=== PATIENT | female | born 1955 | race Caucasian/White ===

== ENCOUNTER 2023-03-12 11:04 | Day surgery (SDC) | payer OTHER, SELFPAY ==
--- NOTE | 2023-03-11 08:53 | HO.ANESPROP2 ---
Documented by User: Lacy Mcgowan NP 03/11/23 08:54 HPI - Anesthesia Eval Consult details Narrative: 67yo F for Upper Endoscopy and Colonoscopy [facility] Past Medical History Medical History Colon polyps GERD (gastroesophageal reflux disease) Henoch-Schonlein purpura HLD (hyperlipidemia) Surgical History Surgical History H/O colonoscopy (~2016) H/O esophagogastroduodenoscopy (~2016) H/O wisdom tooth extraction Social History Social History Patient Tobacco Use Status: Never used Tobacco Use of substances other than those prescribed or required for medical reasons: No Are you DNR?: No Advance Directives: No Advance Directives Information Provided: Yes Recently lost weight without trying: No Nutrition Risks: No Nutritional Risk Meds Allergies Allergy/AdvReac Type Severity Reaction Status Date / Time corn Allergy Unknown Unknown Verified 03/10/23 13:53 Milk Containing Products Allergy Unknown Unknown Verified 03/10/23 13:53 (Dairy) Home Medications Medication Instructions Recorded Confirmed Last Taken Type loratadine 10 mg tablet mg 03/10/23 Unknown History omeprazole 40 mg capsule,delayed 40 mg PO QAM 03/10/23 03/10/23 Unknown History release simvastatin 20 mg tablet 20 mg PO BEDTIME 03/10/23 03/10/23 Unknown History Exam Exam Date and Time: March 11, 2023 0853 Assessment and Plan Assessment Anesthesia Assessment: Chart Reviewed Documented by User: Fay Devlin MD 03/12/23 12:45 [facility] Past Medical History Medical History Colon polyps GERD (gastroesophageal reflux disease) Henoch-Schonlein purpura HLD (hyperlipidemia) Surgical History Surgical History H/O colonoscopy (~2016) H/O esophagogastroduodenoscopy (~2016) H/O wisdom tooth extraction Social History Social History Patient Tobacco Use Status: Never used Tobacco Use of substances other than those prescribed or required for medical reasons: No Are you DNR?: No Advance Directives: No Advance Directives Information Provided: Yes Recently lost weight without trying: No Nutrition Risks: No Nutritional Risk Meds Allergies Allergy/AdvReac Type Severity Reaction Status Date / Time corn Allergy Unknown Unknown Verified 03/10/23 13:53 Milk Containing Products Allergy Unknown Unknown Verified 03/10/23 13:53 (Dairy) Home Medications Medication Instructions Recorded Confirmed Last Taken Type loratadine 10 mg tablet mg 03/10/23 Unknown History omeprazole 40 mg capsule,delayed 40 mg PO QAM 03/10/23 03/10/23 Unknown History release simvastatin 20 mg tablet 20 mg PO BEDTIME 03/10/23 03/10/23 Unknown History Exam Airway Mallampati Class: II TM Dist: >3cm Neck ROM: Full Loose/Missing/Broken Teeth: No Heart: RRR Lungs: CTA Assessment and Plan Assessment Anesthesia Assessment: Anesthesia Plan Discussed Final Anesthetic Review NPO: Yes ASA Class: II Final Preanesthetic Review: Meds/Allgs Chart Reviewed, Consent Obtained/Reviewed and Anes Risks/Benef Reviewed Patient Risk: Low Procedure Risk: Intermediate Anesthetic Plan Anesthetic Plan: MAC: Disposition: Standard PACU
[2023-03-12 11:37] VITALS: BMI 29.2
[2023-03-12 11:43] VITALS: BP 156/66; RESP 16; TEMP 36.6; O2SAT 97
[2023-03-12] MEDS: Lactated Ringers 1,000 ML 100 ML IVCONT (12:00)
--- NOTE | 2023-03-12 12:45 | MHC.SHP ---
Pre-Procedural Eval Section A Date of Service: 03/12/23 The patient is an INPATIENT: No Changes since office visit: No Cold of Flu in the past 2 weeks, No New Medical Problems, No Changes in Medication and No Patient answered all questions The History & Physical has been completed within 30 days and I have reviewed it.: Yes Section B Chief Complaint: screening and GERD Allergies: Allergies Allergy/AdvReac Type Severity Reaction Status Date / Time corn Allergy Unknown Unknown Verified 03/10/23 13:53 Milk Containing Products Allergy Unknown Unknown Verified 03/10/23 13:53 (Dairy) Plan I have reviewed the history and physical and performed a pertinent physical examination on my patient. No changes have occurred unless specified. Time Spent With Patient Time: Total time managing care of this patient today ____ minutes.
--- NOTE | 2023-03-12 13:16 | HO.ANESPROP2 ---
[facility] Past Medical History Medical History Colon polyps GERD (gastroesophageal reflux disease) Henoch-Schonlein purpura HLD (hyperlipidemia) Surgical History Surgical History H/O colonoscopy (~2016) H/O esophagogastroduodenoscopy (~2016) H/O wisdom tooth extraction Social History Social History Patient Tobacco Use Status: Never used Tobacco Use of substances other than those prescribed or required for medical reasons: No Are you DNR?: No Advance Directives: No Advance Directives Information Provided: Yes Recently lost weight without trying: No Nutrition Risks: No Nutritional Risk Meds Allergies Allergy/AdvReac Type Severity Reaction Status Date / Time corn Allergy Unknown Unknown Verified 03/10/23 13:53 Milk Containing Products Allergy Unknown Unknown Verified 03/10/23 13:53 (Dairy) Active Medications: Current Medications Lactated Ringer's (Lr) 1,000 mls @ 100 mls/hr IVCONT .Q10H KIP Last Admin: 03/12/23 12:00 Dose: 100 mls/hr Home Medications Medication Instructions Recorded Confirmed Last Taken Type loratadine 10 mg tablet mg 03/10/23 Unknown History omeprazole 40 mg capsule,delayed 40 mg PO QAM 03/10/23 03/10/23 Unknown History release simvastatin 20 mg tablet 20 mg PO BEDTIME 03/10/23 03/10/23 Unknown History Exam Exam Date and Time: March 12, 2023 1316 Height,Weight and Vital Signs: Height 5 ft 8 in Weight 87.09 kg Last Vital Signs Temp 97.9 F 03/12/23 11:43 Resp 16 03/12/23 11:43 BP 156/66 H 03/12/23 11:43 Pulse Ox 97 03/12/23 11:43 O2 Del Method Room Air 03/12/23 11:43 Airway Mallampati Class: II
[2023-03-12 13:35] VITALS: BP 103/82; PULSE 67; RESP 16; TEMP 36.2; O2SAT 99
--- NOTE | 2023-03-12 13:35 | P.BOP_ITS ---
Brief Operative Note Date of Service: 03/12/23 Pre-op diagnosis: gerd screening Post-op diagnosis: same Surgeon: Javon Black Anesthesia: MAC Was an Graphic [employer] Sales Representative used for this Procedure?: No Estimated blood loss (mL): 5 Pathology: other Condition: stable Disposition: PACU
[2023-03-12 13:50] VITALS: BP 139/55; PULSE 81; RESP 16; TEMP 36.2; O2SAT 99
--- NOTE | 2023-03-12 13:55 | OP_ITS ---
DATE OF SERVICE: 03/12/2023 SURGEON: Javon Black MD INDICATIONS: 1. Gastroesophageal reflux disease. 2. Colon cancer screening. PREOPERATIVE DIAGNOSIS: POSTOPERATIVE DIAGNOSIS: PROCEDURE PERFORMED: Upper endoscopy with biopsy, colonoscopy to the terminal ileum with snare polypectomy and biopsy. ESTIMATED BLOOD LOSS: COMPLICATIONS: ANESTHESIA: Monitored anesthesia care. ASSISTANTS: SPECIMENS: DESCRIPTION OF PROCEDURE: A history and physical was performed. The risks and benefits of the procedure were explained to the patient. Informed consent was obtained. The patient was placed in the left lateral decubitus position. The Olympus video gastroscope was introduced into the esophagus, stomach, and duodenum. Examination was performed, and the scope was removed. She was repositioned for colonoscopy. A digital rectal exam was performed and was found to be normal. The Olympus pediatric video colonoscope was introduced into the rectum and advanced to the cecum without difficulty. The cecum was identified by transillumination, palpation, and identification of ileocecal valve. Examination was performed. The scope was removed. She tolerated both procedures well and was returned to the recovery area in stable condition. FINDINGS: Upper endoscopy: 1. Esophagus: The esophagus was normal. There was no esophagitis. There was a slight Schatzki that was nonobstructive at the EG junction. Biopsies were obtained from the EG junction. 2. Stomach: The stomach showed no evidence of masses, ulcers, or polyps. Antral biopsies were obtained to rule out H pylori. 3. Duodenum: The bulb and 2nd portion were normal. Colonoscopy: The terminal ileum was examined and appeared normal. The visualized colonic mucosa was within normal limits without evidence of masses or ulcers. The quality of the prep was good with some small amounts of material left in the colon that was washed and suctioned. A single polyp measuring less than 10 mm was identified at 10 cm from the anal verge. This was removed with a snare and recovered by suction and with the biopsy forceps. There was mild sigmoid diverticulosis with a few scattered diverticula in the right colon. Retroflexed examination showed some small internal hemorrhoids. IMPRESSION: 1. Gastroesophageal reflux disease. 2. Colon polyp. RECOMMENDATION: Follow up the biopsy results. MD RIANA Myers/FAVIAN / [id number]
== END 2023-03-12 14:18 | disposition home or self-care (01) ==
PROVIDERS: PCP Internal Medicine; Visit Provider Internal Medicine Gastroenterology
PROC: (CPT 45385; principal; 2023-03-12 12:50)
DX: Z12.11 Encounter for screening for malignant neoplasm of colon (principal); Z86.010 Personal history of colon polyps; Z83.71 Family history of colonic polyps; D12.8 Benign neoplasm of rectum; K57.30 Diverticulosis of large intestine without perforation or abscess without bleeding; K64.8 Other hemorrhoids; K21.9 Gastro-esophageal reflux disease without esophagitis; K29.50 Unspecified chronic gastritis without bleeding; E78.00 Pure hypercholesterolemia, unspecified; D69.0 Allergic purpura; Z79.899 Other long term (current) drug therapy
CPT/HCPCS: 45385; 45380; 43239; 88305; 88342